=== PATIENT | female | born 2000 | race Caucasian/White ===

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

== ENCOUNTER 2021-09-12 07:10 | Emergency (ER) | payer OTHER ==
[~2021-09-12] VITALS: Wt 67.1 kg
[2021-09-12 07:44] LABS: BASO % 0.1 % (0.0-1.0); EOS # 0.1 10*3/uL (0.0-0.4); EOS % 1.1 % (1.0-4.0); LYMPH # 1.5 10*3/uL (1.3-4.4); LYMPH % 21.1 % (27.0-41.0); MEAN CELL VOLUME 89.5 fl (81.0-99.0); MEAN CORPUSCULAR HGB 30.7 pg (27.0-31.0); MEAN CORPUSCULAR HGB CONC 34.3 g/dl (33.0-37.0); MEAN PLATELET VOLUME 10.9 fl (9.6-12.3); MONO # 0.5 10*3/uL (0.1-1.0); MONO % 7.6 % (3.0-9.0); NEUT # 4.9 10*3/uL (2.3-7.9); NEUT % 69.8 % (47.0-73.0); PLATELET COUNT AUTOMATED 157 10*3/uL (130-400); RED BLOOD COUNT 3.91 10*6/uL (4.10-5.10); RED CELL DISTRI WIDTH 13.2 % (0-14.5)
[2021-09-12 08:00] LABS: ALKALINE PHOSPHATASE 49 U/L (45-117); BUN 5 mg/dl (7-24); CHLORIDE 111 mmol/L (98-107); CREATININE 0.44 mg/dL (0.55-1.02); POTASSIUM 3.8 mmol/L (3.5-5.1); SGOT/AST 16 IU/L (3-35); SGPT/ALT 25 U/L (12-78); SODIUM 137 mmol/L (136-145); TOTAL PROTEIN 6.6 gm/dL (6.4-8.2)
[2021-09-12 08:31] LABS: BILIRUBIN Negative (Negative); BLOOD Negative (Negative); CLARITY Turbid (Clear); COLOR Yellow (Yellow); GLUCOSE Negative (Negative); KETONE Negative (Negative); LEUKO ESTERASE 1+ (Negative); NITRITE Negative (Negative)
[2021-09-12 09:02] LABS: BACTERIA 2+; EPITHELIAL CELLS 21-30
[2021-09-12] MEDS ORDERED: DICLEGIS DR 101 EACH PO (09:26)
== END 2021-09-12 09:29 | disposition home or self-care (01) ==
LOC: ED 07:10
PROVIDERS: Emergency Medicine
DX: O26.892 Other specified pregnancy related conditions, second trimester (principal); R51.9 Headache, unspecified; R10.30 Lower abdominal pain, unspecified; Z3A.24 24 weeks gestation of pregnancy

== ENCOUNTER 2022-08-23 23:15 | Emergency (ER) | payer OTHER ==
[~2022-08-23] VITALS: Ht 167.6 cm; Wt 72.6 kg
[~2022-08-23 23:15] MED LIST changes: +DICLEGIS DR 101 EACH PO
== END 2022-08-24 00:43 | disposition home or self-care (01) ==
LOC: ED 23:15
DX: S61.412A Laceration without foreign body of left hand, initial encounter (principal); Z98.890 Other specified postprocedural states; W26.8XXA Contact with other sharp object(s), not elsewhere classified, initial encounter; Y93.89 Activity, other specified; Y92.89 Other specified places as the place of occurrence of the external cause; Y99.8 Other external cause status